=== PATIENT | male | born 1950 | race Caucasian/White ===

== ENCOUNTER 2018-06-06 19:49 | Emergency (ER) | payer OTHER, MEDICARE ==
[~2018-06-06] VITALS: Ht 182.9 cm; Wt 102.1 kg
[~2018-06-06 19:49] MED LIST: ATEN25; HYDACE5 PO; LISINOPRIL-? DOSE; ONDA8 PO; OXYACE5T PO; TAMS.4ER PO; ZESTORETIC 20-121 E1 PO
== END 2018-06-06 21:53 | disposition home or self-care (01) ==
LOC: ER 19:49
DX: S01.81XA Laceration without foreign body of other part of head, initial encounter (principal); W22.8XXA Striking against or struck by other objects, initial encounter; Z79.899 Other long term (current) drug therapy; I10 Essential (primary) hypertension
CPT/HCPCS: 12013; 90471; 90714; 99282-25

== ENCOUNTER → 2018-09-20 | Outpatient (CLI) | payer MEDICARE | END | disposition home or self-care (01) | LOC: LAB SHORT 08:51 → PLD 08:51 | DX: D22.5 Melanocytic nevi of trunk (principal); D18.09 Hemangioma of other sites; L57.0 Actinic keratosis | CPT/HCPCS: 88305 ==